=== PATIENT | male | born 1950 ===

== ENCOUNTER 2017-05-08 08:37 | Emergency (ER) | payer OTHER ==
[~2017-05-08] VITALS: Ht 195.6 cm; Wt 88.5 kg
[2017-05-08] MEDS ORDERED: METOPROLOL ER-1 EACH (09:10)
== END 2017-05-08 13:48 | disposition home or self-care (01) ==
LOC: ER 08:37
DX: I95.9 Hypotension, unspecified (principal); E86.0 Dehydration